=== PATIENT | female | born 1970 | race Caucasian/White ===

== ENCOUNTER 2017-11-21 20:11 | Emergency (ER) | payer MEDICAID ==
[2017-11-21 22:01] VITALS: BP 138/104
== END 2017-11-21 22:01 | disposition home or self-care (01) ==
LOC: ED 20:11
DX: J30.9 Allergic rhinitis, unspecified (principal); I10 Essential (primary) hypertension
CPT/HCPCS: J1885

== ENCOUNTER 2019-09-25 08:21 | Emergency (ER) | payer MEDICAID ==
[~2019-09-25] VITALS: Ht 154.9 cm; Wt 66.2 kg
[2019-09-25 08:27] VITALS: Ht 154.9 cm; Wt 66.2 kg
[2019-09-25 09:24] VITALS: BP 117/86
== END 2019-09-25 09:24 | disposition home or self-care (01) ==
LOC: ED 08:21
DX: J40 Bronchitis, not specified as acute or chronic (principal); I10 Essential (primary) hypertension